=== PATIENT | female | born 1975 | race Caucasian/White ===

== ENCOUNTER 2019-11-07 20:27 | Emergency (ER) | payer SELFPAY ==
[~2019-11-07] VITALS: Ht 160 cm; Wt 66.3 kg
--- NOTE | 2019-11-07 21:13 | PHYS DOC ---
Past Medical History Past Medical History: Anxiety, Depression, Diabetes-Type II, GERD, Other Additional Past Medical Histor: PTSD, ADHD, Neuropathy, Heart Murmur Past Surgical History: Tubal ligation, Other Additional Past Surgical Histo: Right ankle sx Smoking Status: Current Every Day Smoker Alcohol Use: Sober General Adult EDM: Chief Complaint: VAGINAL BLEEDING HPI: HPI: Patient is a 44 year old female who presents with complaint of right lower abdominal and groin discomfort for the last few days. Patient rates the pain at a 9 out of 10. She denies any nausea, vomiting or diarrhea. She also indicates that she noticed some bleeding from her vagina that started today. Patient states that she has not had a menstrual cycle in years after having had a uterine ablation for menorrhagia. Patient states that feels like she has a slice inside of her vagina, stating that is tender to touch. She denies any vaginal discharge. She states that she is not sexually active.[] Review of Systems: Review of Systems: Constitutional: Denies fever or chills. [] Respiratory: Denies cough or shortness of breath. [] Cardiovascular: Denies chest pain or edema. [] GI: Complains of lower abdominal/pelvic pain without vomiting or diarrhea. [] Integument: Denies rash. [] Neurologic: Denies headache, focal weakness or sensory changes. [] A full 10 point review of systems has been reviewed and is otherwise negative. Heart Score: Risk Factors: Risk Factors: DM, Current or recent (<one month) smoker, HTN, HLP, family history of CAD, obesity. Risk Scores: Score 0 - 3: 2.5% MACE over next 6 weeks - Discharge Home Score 4 - 6: 20.3% MACE over next 6 weeks - Admit for Clinical Observation Score 7 - 10: 72.7% MACE over next 6 weeks - Early Invasive Strategies Allergies: Allergies: Allergies Coded Allergies Type Severity Reaction Last Updated Verified Latex, Natural Rubber Allergy Intermediate 09/15/19 Yes sulfamethoxazole Allergy Intermediate mouth sores 09/15/19 Yes trimethoprim Allergy Intermediate mouth sores 09/15/19 Yes Physical Exam: PE: Constitutional: Well developed, well nourished, no acute distress, non-toxic appearance. [] HENT: Normocephalic, atraumatic, bilateral external ears normal, oropharynx [address], no oral exudates, nose normal. [] Eyes: PERRLA, EOMI, conjunctiva normal, no discharge. [] Neck: Normal range of motion, no tenderness, supple. [] Cardiovascular: Regular rate and rhythm[] Lungs & Thorax: Bilateral breath sounds clear to auscultation [] Abdomen: Bowel sounds normal, soft, with right adnexal tenderness. [] Skin: Warm, dry, no erythema, no rash. [] Extremities: No tenderness, no cyanosis, no clubbing, ROM intact, no edema. [] Neurologic: Alert and oriented X 3, no focal deficits noted. [] Current Patient Data: Labs: Laboratory Tests Test 11/07/19 20:42 POC Urine HCG, Qualitative Hcg negative (Negative) EKG: EKG: [] Radiology/Procedures: Radiology/Procedures: [] Impression: PROCEDURE: PELVIS W/TV Exam: Ultrasound pelvis Indication: Lower abdominal/pelvic pain Technique: Real-time grayscale and color Doppler images of the pelvis were obtained by the department machine overhauler. Comparisons: None FINDINGS: Uterus measures 7.3 x 4.5 x 3.5 cm. Endometrium is 5 mm in thickness. Right ovary measures 1.5 x 1.3 x 1.2 cm. Left ovary measures 2.1 x 1.3 x 1.2 cm. Vascular flow identified within the ovaries bilaterally. No free fluid. IMPRESSION: Normal sonographic appearance of the uterus and ovaries. Electronically signed by: Petar Campos MD (11/07/2019 10:48 PM) [id number] Course & Med Decision Making: Course & Med Decision Making Pertinent Labs and Imaging studies reviewed. (See chart for details) [] Dragon Disclaimer: Dragon Disclaimer: This electronic medical record was generated, in whole or in part, using a voice recognition dictation system. Departure Departure Impression: Primary Impression: Pelvic pain Additional Impressions: Genital herpes Qualified Codes: A60.04 - Herpesviral vulvovaginitis Dehydration Hyperglycemia Disposition: 01 HOME, SELF-CARE Condition: STABLE Referrals: UNKNOWN PCP NAME (PCP) Patient Instructions: Dehydration, Adult, Herpes Labialis, Hyperglycemia, Pelvic Pain, Female Scripts Diclofenac Sodium (DICLOFENAC SODIUM) 50 Mg Tablet. 1 TAB PO BID PRN for PAIN, #20 TAB Prov: BONNIE RHODES Jr. DO 11/07/19 Valacyclovir Hcl (VALTREX) 1,000 Mg Tablet 1 TAB PO BID, #20 TAB Prov: BONNIE RHODES Jr. DO 11/07/19 BONNIE RHODES Jr. DO Nov 07, 2019 21:13
[2019-11-07] MEDS ORDERED: IV NORMAL SALINE 1000ML BAG 1,000 ML IV SCH (21:15)
[2019-11-07] MEDS ORDERED: KETOROLAC 30 MG/ML VIAL. IVP ONE (21:15)
[2019-11-07] MEDS ORDERED: ONDANSETRON PF 4 MG/2 ML VIAL. IVP ONE (21:15)
[2019-11-07 21:23] LABS: BASO # 0.1 x10^3/uL (0.0-0.2); BASO % 1 % (0-3); EOS # 0.1 x10^3/uL (0.0-0.7); EOS % 2 % (0-3); HEMATOCRIT 36.4 % (36.0-47.0); HEMOGLOBIN 12.6 g/dL (12.0-15.5); LYMPH # 1.2 x10^3/uL (1.0-4.8); LYMPH % 20 % (24-48); MEAN CORPUSCULAR HEMOGLOBIN 34 pg (25-35); MEAN CORPUSCULAR HGB CONC 35 g/dL (31-37); MEAN CORPUSCULAR VOLUME 97 fL (79-100); MONO # 0.9 x10^3/uL (0.0-1.1); MONO % 15 % (0-9); NEUT # 3.8 x10^3/uL (1.8-7.7); NEUT % 63 % (31-73); PLATELET COUNT 351 x10^3/uL (140-400); RED BLOOD COUNT 3.74 x10^6/uL (3.50-5.40); RED CELL DISTRIBUTION WIDTH 12.5 % (11.5-14.5); WHITE BLOOD COUNT 6.1 x10^3/uL (4.0-11.0)
[2019-11-07 21:39] LABS: CALCIUM 8.6 mg/dL (8.5-10.1); CREATININE 1.1 mg/dL (0.6-1.0); GFR 53.5; POTASSIUM 4.2 mmol/L (3.5-5.1)
[2019-11-07 21:44] LABS: ALBUMIN 3.2 g/dL (3.4-5.0); ALBUMIN/GLOBULIN RATIO 0.9 (1.0-1.7); TOTAL BILIRUBIN 0.3 mg/dL (0.2-1.0); TOTAL PROTEIN 6.8 g/dL (6.4-8.2)
[2019-11-07 22:22] LABS: BILIRUBIN,URINE NEGATIVE (NEG); CLARITY,URINE CLEAR; COLOR,URINE YELLOW; NITRITE,URINE NEGATIVE (NEG); PROTEIN,URINE NEGATIVE (NEG-TRACE); UROBILINOGEN,URINE 0.2 mg/dL (0.2 mg/dL)
[2019-11-07 22:26] LABS: BACTERIA,URINE 0 /HPF (0-FEW); SQUAMOUS EPITHELIAL CELL,UR FEW /LPF
[2019-11-07 22:27] LABS: BARBITURATES NEG (NEG); BENZODIAZEPINES NEG (NEG); CANNABINOIDS NEG (NEG); COCAINE NEG (NEG); METHADONE NEG (NEG); OPIATES NEG (NEG); PHENCYCLIDINE NEG (NEG)
[2019-11-07 22:28] VITALS: BP 105/66
[2019-11-07 22:29] LABS: AMPHETAMINE/METHAMPHETAMINE NEG (NEG)
--- NOTE | 2019-11-07 22:51 | RAD ---
Exam: Ultrasound pelvis Indication: Lower abdominal/pelvic pain Technique: Real-time grayscale and color Doppler images of the pelvis were obtained by the department lawn sprinkler installer. Comparisons: None FINDINGS: Uterus measures 7.3 x 4.5 x 3.5 cm. Endometrium is 5 mm in thickness. Right ovary measures 1.5 x 1.3 x 1.2 cm. Left ovary measures 2.1 x 1.3 x 1.2 cm. Vascular flow identified within the ovaries bilaterally. No free fluid. IMPRESSION: Normal sonographic appearance of the uterus and ovaries. Electronically signed by: Petar Campos MD (11/07/2019 10:48 PM) [id number]
[2019-11-07] MEDS ORDERED: VALA10005 PO (23:02)
[2019-11-07] MEDS ORDERED: DICL50TA4 PO (23:02)
[2019-11-07] MEDS ORDERED: valACYclovir 500 MG TABLET. PO ONE (23:15)
== END 2019-11-07 23:20 | disposition home or self-care (01) ==
LOC: ER 20:27
DX: A60.04 Herpesviral vulvovaginitis (principal); E86.0 Dehydration; E11.65 Type 2 diabetes mellitus with hyperglycemia; R10.2 Pelvic and perineal pain; E11.40 Type 2 diabetes mellitus with diabetic neuropathy, unspecified; K21.9 Gastro-esophageal reflux disease without esophagitis; F17.200 Nicotine dependence, unspecified, uncomplicated; Z98.51 Tubal ligation status; Z88.1 Allergy status to other antibiotic agents; Z88.2 Allergy status to sulfonamides; Z91.040 Latex allergy status
CPT/HCPCS: 76830; 76856; 80053; 80307; 81001; 81025; 83690; 85025; 86696; 96361; 96374; 96375; 99284; J1885; J2405; J7030; 36415